=== PATIENT | male | born 1970 ===

== ENCOUNTER 2021-10-06 21:49 | Emergency (ER) | payer OTHER ==
[2021-10-06 22:51] LABS: CORONAVIRUS COVID-19 NAA NEGATIVE (NEGATIVE)
== END 2021-10-07 02:11 | disposition home or self-care (01) ==
LOC: JD.ED 21:49
DX: J06.9 Acute upper respiratory infection, unspecified (principal); J98.59 Other diseases of mediastinum, not elsewhere classified; Z88.2 Allergy status to sulfonamides; Z88.8 Allergy status to other drugs, medicaments and biological substances; Z20.822 Contact with and (suspected) exposure to COVID-19
CPT/HCPCS: 0241U; 36415; 71045; 71275; 80053; 84484; 85025; 85379; 85610; 86140; 87651; 93005; 99285; 93010

== ENCOUNTER 2022-04-23 05:01 | Emergency (ER) | payer OTHER ==
[2022-04-23] MEDS ORDERED: Morphine 4 MG/ML VIAL IVPUSH ONE (05:41)
[2022-04-23] MEDS ORDERED: Ondansetron 4 MG/2 ML SDV IVPUSH ONE (05:41)
[2022-04-23] MEDS ORDERED: Sodium Chloride 0.9% 1,000 ML IV SCH (05:45)
[2022-04-23] MEDS ORDERED: Morphine 4 MG/ML Syringe ONE (05:53)
[2022-04-23] MEDS ORDERED: Morphine 2 MG/ML SYRINGE IVPUSH ONE (06:43)
[2022-04-23] MEDS ORDERED: HYDROmorphone 1 MG/ML Syringe IVPUSH ONE (07:45)
[2022-04-23] MEDS ORDERED: Sodium Chloride 0.9% 1,000 ML IV ONE (10:23)
== END 2022-04-23 12:50 | disposition home or self-care (01) ==
LOC: JD.ED 05:01
DX: N20.0 Calculus of kidney (principal); Z88.2 Allergy status to sulfonamides; Z91.018 Allergy to other foods; Z88.6 Allergy status to analgesic agent; Z79.899 Other long term (current) drug therapy; Z86.16 Personal history of COVID-19
CPT/HCPCS: 36415; 74176; 80053; 81001; 85025; 96361; 96374; 96375; 96376; 99284; J1170; J2270; J2405; J7030